=== PATIENT | male | born 1965 | race Caucasian/White ===

== ENCOUNTER 2023-09-02 06:41 | Emergency (ER) | payer OTHER ==
[~2023-09-02] VITALS: Ht 182.9 cm; Wt 114.3 kg
[2023-09-02 06:53] VITALS: BP 116/82; PULSE 56; RESP 14; TEMP 97.1; O2SAT 97
[2023-09-02] MEDS ORDERED: IBUP-2213 PO (07:38)
[2023-09-02] MEDS ORDERED: ERYT5OIN51 OP (07:38)
[2023-09-02] MEDS: TETRACAINE HCL/PF 0.5% OPTH 4 ML BTL OP ONE (07:42)
[2023-09-02] MEDS: FLUORESCEIN OPTH STRIP 1 MG OP ONE (07:44)
[2023-09-02 07:48] VITALS: BP 116/82; PULSE 56; RESP 14; TEMP 97.1; O2SAT 97
== END 2023-09-02 07:48 | disposition home or self-care (01) ==
LOC: MED 06:41
DX: H16.133 Photokeratitis, bilateral (principal)
CPT/HCPCS: 99283